=== PATIENT | male | born 2000 | race Caucasian/White ===

== ENCOUNTER 2020-01-30 22:13 | Emergency (ER) | payer BC ==
--- NOTE | 2020-01-30 22:42 | EDM.PDOC ---
ED HPI GENERAL MEDICAL PROBLEM - General Chief Complaint: Skin Complaint Stated Complaint: RIGHT EAR LACERATION Time Seen by Provider: 01/30/20 22:28 Source of Information: Reports: Patient - History of Present Illness INITIAL COMMENTS - FREE TEXT/NARRATIVE: History of present illness: 19-year-old male presenting with right ear laceration. Apparently he was playing hockey when he collided with another player with their helmet and then started to feel some bleeding down the edge of his ear. He does not have a headache or any other symptoms. He was also wearing a helmet. This happened just prior to arrival here. Review of systems: As per history of present illness and below otherwise all systems reviewed and negative. Past medical history: As per history of present illness and as reviewed below otherwise noncontributory. No medical problems Surgical history: As per history of present illness and as reviewed below otherwise noncontributory. Umbilical hernia repair Social history: No reported history of drug or alcohol abuse. No tobacco Family history: As per history of present illness and as reviewed below otherwise noncontributory. Physical exam: GEN: no acute distress, well appearing HEENT: 1 cm laceration at the RIGHT external ear canal, between the antitragus and intertragic notch, with minimal bleeding. No exposed or visible cartilage. Head otherwise atraumatic and normocephalic, mucous membranes moist, Right TM intact with no bleeding, perforation or otic canal bleeding. Neck: supple, nontender, trachea midline. Lungs: No respiratory distress. Heart: RRR Extremities: Atraumatic. Neurovascularly intact. Neuro: Awake, alert, oriented. Neuro Exam nonfocal. Skin: warm, dry, 1 cm laceration as above, dried blood, no active bleeding, appears overall clean Diagnostics: Not indicated Therapeutics: MDM: Impression: Plan: Definitive disposition and diagnosis as appropriate pending reevaluation and review of above. - Related Data Allergies Allergy/AdvReac Type Severity Reaction Status Date / Time No Known Allergies Allergy Verified 01/30/20 22:28 Home Meds: Home Meds . [No Known Home Meds] 01/30/20 [History] Past Medical History - Past Health History Medical/Surgical History: Denies Medical/Surgical History HEENT History: Reports: None Cardiovascular History: Reports: None Respiratory History: Reports: None Genitourinary History: Reports: None Musculoskeletal History: Reports: None Neurological History: Reports: None Psychiatric History: Reports: None Endocrine/Metabolic History: Reports: None Hematologic History: Reports: None Immunologic History: Reports: None Oncologic (Cancer) History: Reports: None Dermatologic History: Reports: None - Infectious Disease History Infectious Disease History: Reports: None - Past Surgical History Head Surgeries/Procedures: Reports: None GI Surgical History: Reports: Hernia Repair/Other Male Surgical History: Reports: None Social & Family History - Tobacco Use Smoking Status *Q: Never Smoker Second Hand Smoke Exposure: No - Caffeine Use Caffeine Use: Reports: None - Recreational Drug Use Recreational Drug Use: No ED ROS GENERAL - Review of Systems Review Of Systems: See Below (See HPI) ED EXAM, SKIN/RASH Exam: See Below (See HPI) ED SKIN PROCEDURES - Laceration/Wound Repair Right Ear Appearance: Superficial, Clean Skin Prep: Chlorhexidine (Hibiciens), Saline Saline Irrigation (cc's): 5 Exploration/Debridement/Repair: Wound Explored, No Foreign Material Found Closed with: Sutures Lac/Wound length In cm: 1 Suture Size: 5-0 # of Sutures: 2 Suture Type: Prolene, Interrupted Course - Vital Signs Text/Narrative:: Superficial laceration at the edge of the right ear, 1cm. Patient to repair with or without lidocaine. Patient prefers to defer lidocaine as it would be the same number of injections and therefore wound was repaired with 5-0 Prolene sutures. To be removed in 7 days. Minor head injury, helmet collision with hockey. No loss of consciousness. No headache. No indication for CT scanning at this time. Last Recorded V/S: Last Vital Signs Temp 97.0 F 01/30/20 22:24 Pulse 98 01/30/20 22:24 Resp 18 01/30/20 22:24 BP 126/73 01/30/20 22:24 Pulse Ox 98 01/30/20 22:24 - Re-Assessments/Exams Free Text/Narrative Re-Assessment/Exam: 01/30/20 23:19 Patient tolerated suture repair well. Discussed suture removal at 7 days. Patient agrees with this plan. Departure - Departure Time of Disposition: 23:22 Disposition: Home, Self-Care 01 Clinical Impression: Laceration of ear Qualifiers: Encounter type: initial encounter Laterality: right Qualified Code(s): S01.311A - Laceration without foreign body of right ear, initial encounter - Discharge Information Instructions: Laceration Care, Adult, [id number], Sutures, [place], or Adhesive Wound Closure, [id number], Sutured Wound Care, [id number] Referrals: PCP,None [Primary Care Provider] - Forms: ED Department Discharge Additional Instructions: Keep the area clean and dry. Please keep the laceration completely dry for the next 24 hours, then you may rinse and wash it gently with soap and water but do not submerge and do not scrub out it. You will need to have the sutures removed in 7 days. This can be done at any primary care, urgent care, or you may return to the emergency department as well to do this. If the wound becomes red, swollen, warm to touch or develops any discharge, please return to the emergency department immediately. If you start to feel confused, lethargic, have difficulty speaking, or have any other concerning neurologic type symptoms, please return to the emergency department immediately. Please follow-up with 1 of the primary care clinics listed below for ongoing and routine primary care. The following information is given to patients seen in the emergency department who are being discharged to home. This information is to outline your options for follow-up care. We provide all patients seen in our emergency department with a follow-up referral. The need for follow-up, as well as the timing and circumstances, are variable depending upon the specifics of your emergency department visit. If you don't have a primary care physician on staff, we will provide you with a referral. We always advise you to contact your personal physician following an emergency department visit to inform them of the circumstance of the visit and for follow-up with them and/or the need for any referrals to a consulting specialist. The emergency department will also refer you to a specialist when appropriate. This referral assures that you have the opportunity for follow-up care with a specialist. All of these measure are taken in an effort to provide you with optimal care, which includes your follow-up. Under all circumstances we always encourage you to contact your private physician who remains a resource for coordinating your care. When calling for follow-up care, please make the office aware that this follow-up is from your recent emergency room visit. If for any reason you are refused follow-up, please contact the [facility] Emergency Department at and asked to speak to the emergency department charge nurse. [facility] - Primary Care [address] [place] [id number] [facility] [address] [place] [id number] Sepsis Event Note (ED) - Evaluation Sepsis Screening Result: No Definite Risk - Focused Exam Vital Signs: Vital Signs Temp Pulse Resp BP Pulse Ox 01/30/20 22:24 97.0 F 98 18 126/73 98
== END 2020-01-30 23:35 | disposition home or self-care (01) ==
LOC: MW.ED 22:13
DX: S01.311A Laceration without foreign body of right ear, initial encounter (principal); W50.0XXA Accidental hit or strike by another person, initial encounter
CPT/HCPCS: 12011; 99282; 99282-25

== ENCOUNTER 2020-02-06 11:04 | Emergency (ER) | payer BC | END 2020-02-06 11:50 | disposition left against medical advice (07) | LOC: MW.ED 11:04 | DX: S01.311D Laceration without foreign body of right ear, subsequent encounter (principal); X58.XXXD Exposure to other specified factors, subsequent encounter | CPT/HCPCS: 99281 ==